=== PATIENT | male | born 1960 | race Hispanic/Latino ===

== ENCOUNTER 2016-11-08 20:14 | Emergency (ER) | payer BC ==
[2016-11-08 20:15] VITALS: BMI 28.1
[2016-11-08 20:26] VITALS: BP 142/88; PULSE 68; RESP 18; TEMP 98.1; O2SAT 99
--- NOTE | 2016-11-08 20:51 | ED PDOC ---
Arrival/HPI - General Chief Complaint: Lower Extremity Problem/Injury Time Seen by Provider: 11/08/16 20:45 Historian: Patient - History of Present Illness Narrative History of Present Illness (Text): 11/08/16 20:50 Geremias Bess is a 56 year old male who presents to the ED complaining of bilateral lower leg and upper arm discomfort tonight. 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 Patient denies any blunt trauma/injury, fever, chills, chest pain, shortness of breath, or any other complaints. Patient is able to ambulate and move extremities without difficulty. Symptom Onset: Gradual Symptom Course: Unchanged Activities at Onset: Light Context: Work Past Medical History - Provider Review Nursing Documentation Reviewed: Yes - Infectious Disease Hx of Infectious Diseases: None - Tetanus Immunization Tetanus Immunization: Unknown - Psychiatric Hx Depression: No Hx Emotional Abuse: No Hx Physical Abuse: No Hx Substance Use: No - Anesthesia Hx Anesthesia: No - Suicidal Assessment Feels Threatened In Home Enviroment: No Family/Social History - Physician Review Nursing Documentation Reviewed: Yes Family/Social History: Unknown Family HX Smoking Status: Current Some Days Smoker Hx Alcohol Use: No Hx Substance Use: No Hx Substance Use Treatment: No Allergies/Home Meds Allergies/Adverse Reactions: Allergies Penicillins Allergy (Verified 11/08/16 20:26) RASH Home Medications: Home Meds Medication Instructions Recorded Confirmed No Known Home Med 11/08/16 11/08/16 Review of Systems - Physician Review All systems were reviewed & negative as marked: Yes - Review of Systems Constitutional: Normal. absent: Fevers Eyes: Normal ENT: Normal Respiratory: Normal. absent: SOB, Cough Cardiovascular: Normal. absent: Chest Pain Gastrointestinal: Normal. absent: Abdominal Pain, Diarrhea, Nausea, Vomiting Genitourinary Male: Normal. absent: Dysuria, Frequency, Hematuria, Urinary Output Changes Musculoskeletal: Myalgias (+bilateral lower leg discomfort, +bilateral arm discomfort). absent: Back Pain, Neck Pain Skin: Normal. absent: Rash Neurological: Normal. absent: Headache, Dizziness Endocrine: Normal Hemo/Lymphatic: Normal Psychiatric: Normal Physical Exam Vital Signs Reviewed: Yes Vital Signs Temp Pulse Resp BP Pulse Ox 11/08/16 20:22 98.1 F 68 18 142/88 99 Temperature: Afebrile Blood Pressure: Normal Pulse: Regular Respiratory Rate: Normal Appearance: Positive for: Well-Appearing, Non-Toxic, Comfortable Pain Distress: None Mental Status: Positive for: Alert and Oriented X 3 - Systems Exam Head: Present: Atraumatic, Normocephalic Pupils: Present: PERRL Extroacular Muscles: Present: EOMI Conjunctiva: Present: Normal Mouth: Present: Moist Mucous Membranes Neck: Present: Normal Range of Motion Respiratory/Chest: Present: Clear to Auscultation, Good Air Exchange. No: Respiratory Distress, Accessory Muscle Use Cardiovascular: Present: Regular Rate and Rhythm, Normal S1, S2. No: Murmurs Lower Extremity: Present: CALF TENDERNESS (Discomfort on palpation to bilateral calf muscles), NORMAL PULSES, Normal ROM, Neurovascularly Intact, Capillary Refill < 2 s. No: Edema, Cyanosis, Tenderness, Swelling, Erythema, Deformity, Temperature Abnormalties Neurological: Present: GCS=15, CN II-XII Intact, Speech Normal Skin: Present: Warm, Dry, Normal Color. No: Rashes Psychiatric: Present: Alert, Oriented x 3, Normal Insight, Normal Concentration Medical Decision Making ED Course and Treatment: 11/08/16 20:50 Impression: 56 year old male c/o bilateral lower leg and upper arm discomfort tonight. Plan: -- US Duplex Lower Extremities -- Flexeril -- Motrin -- Reassess and disposition Progress Notes: 11/08/16 22:03 Informed by RNstacey from ER. - RAD Interpretation Radiology Orders: 11/08/16 20:52 DUPLEX LOWER EXTRM VEIN BILAT [US] Stat - Medication Orders Current Medication Orders: Discontinued Medications Cyclobenzaprine HCl (Flexeril) 10 mg PO ONCE ONE Stop: 11/08/16 20:54 Last Admin: 11/08/16 21:03 Dose: 10 mg Ibuprofen (Motrin Tab) 800 mg PO STAT STA Stop: 11/08/16 20:54 Last Admin: 11/08/16 21:03 Dose: 800 mg - Scribe Statement The provider has reviewed the documentation as recorded by the Nain Edmond All medical record entries made by the Olyaibradhames were at my direction and personally dictated by me. I have reviewed the chart and agree that the record accurately reflects my personal performance of the history, physical exam, medical decision making, and the department course for this patient. I have also personally directed, reviewed, and agree with the discharge instructions and disposition. Disposition/Present on Arrival - Present on Arrival Any Indicators Present on Arrival: No History of DVT/PE: No History of Uncontrolled Diabetes: No Urinary Catheter: No History of Decub. Ulcer: No History Surgical Site Infection Following: None - Disposition Have Diagnosis and Disposition been Completed?: Yes Diagnosis: Leg pain, Arm pain Disposition: ELOPEMENT - ER ONLY Disposition Time: 22:00 Condition: UNKNOWN Forms: Fio (Guyanese)
== END 2016-11-08 22:10 | disposition left against medical advice (07) ==
LOC: ED 20:14
DX: M79.622 Pain in left upper arm (principal); M79.621 Pain in right upper arm; M79.662 Pain in left lower leg; M79.661 Pain in right lower leg